=== PATIENT | female | born 1950 | race Caucasian/White ===

== ENCOUNTER 2017-06-13 15:06 | Inpatient (IN) | payer MEDICARE ==
[2017-06-13] VITALS (8 sets, daily range): BP systolic 125–173; BP diastolic 67–99; PULSE 74–99; RESP 16–20; TEMP 97.8–98.4; O2SAT 97–99
[~2017-06-13] VITALS: Ht 162.6 cm; Wt 58.5 kg
[2017-06-13] MEDS ORDERED: PRAV20TA2 PO (15:23)
[2017-06-13] MEDS ORDERED: LISI10TA PO (15:23)
[2017-06-13] MEDS ORDERED: METF750T PO (15:23)
[2017-06-13] MEDS ORDERED: AMBI10TA PO (15:23)
[2017-06-13] MEDS ORDERED: GLIP5TAB8 PO (15:23)
[2017-06-13] MEDS ORDERED: MORPHINE SULFATE 4 MG/ML INJ IV PUSH ONE (15:30)
[2017-06-13] MEDS ORDERED: SODIUM CHLORIDE 0.9% FLUSH 10 ML FLUSH IVF PRN (15:30)
[2017-06-13] MEDS ORDERED: NITROGLYCERIN 2% OINT 1 GM PACKET TOP ONE (15:30)
[2017-06-13 15:38] LABS: AUTOMATED NEUTROPHIL # 7.9 TH/MM3 (1.8-7.7); BASOPHIL # 0.1 TH/MM3 (0-0.2); BASOPHIL % 0.7 % (0.0-2.0); EOSINOPHIL # 0.4 TH/MM3 (0-0.4); HEMATOCRIT 40.9 % (35.0-46.0); HEMOGLOBIN 13.2 GM/DL (11.6-15.3); LYMPH % 18.9 % (9.0-44.0); LYMPHOCYTE # 2.1 TH/MM3 (1.0-4.8); MEAN CELL VOLUME 84.2 FL (80.0-100.0); MEAN CORPUSCULAR HEMOGLOBIN 27.2 PG (27.0-34.0); MEAN CORPUSCULAR HGB CONC 32.3 % (32.0-36.0); MEAN PLATELET VOLUME 7.8 FL (7.0-11.0); MONO % 6.7 % (0.0-8.0); MONOCYTE # 0.7 TH/MM3 (0-0.9); NEUT % 69.7 % (16.0-70.0); PLATELET COUNT 389 TH/MM3 (150-450); RED BLOOD COUNT 4.85 MIL/MM3 (4.00-5.30); WHITE BLOOD COUNT 11.2 TH/MM3 (4.0-11.0)
--- NOTE | 2017-06-13 15:47 | PD ---
HPI . Chest pain Chief Complaint: Chest pain Time Seen by Provider: 15:17 Travel History International Travel<30 days: No Contact w/Intl Traveler<30days: No Traveled to known affect area: No History of Present Illness HPI This patient presents with chief complaint of chest pain. She states she has been having symptoms for the last couple of weeks. The chest pain comes and goes. She has not noted any exacerbating factors. That is, her chest pain does not necessarily occur with activity. She states that it can last for several hours. She reports the onset of an episode of chest pain last night which has been continuous since that time. She states it has waxed and waned rides a pressure-like sensation in the center of her chest. She reports associated left arm and left jaw aching. Has had some nausea and vomiting. Severity is "intense." She took 2 baby aspirin prior to presentation. She reports no previous cardiac history. She does report a history of hypertension and diabetes which have been well controlled with medications. [facility] Past Medical History Diabetes: Yes Patient Takes Glucophage: Yes Hypertension: Yes Tetanus Vaccination: Unknown Influenza Vaccination: Yes ?: Not Menopausal: Yes Past Surgical History Hysterectomy: Yes Social History Alcohol Use: Yes (Occ.) Tobacco Use: No Substance Use: Yes (Marijuana ) Allergies-Medications (Allergen,Severity, Reaction): Coded Allergies: No Known Allergies (Verified Allergy, Unknown, 06/13/17) Reported Meds & Prescriptions Reported Meds & Active Scripts Active Reported Ambien (Zolpidem Tartrate) 10 Mg Tab 10 Mg PO HS Metformin ER (Metformin HCl) 750 Mg Dino 750 Mg PO BID With evening meal Glipizide 5 Mg Tab 5 Mg PO BIDAC Take 30 minutes before a meal Review of Systems Except as stated in HPI: all other systems reviewed are Neg General / Constitutional: Positive: Other (diaphoresis) Cardiovascular: Positive: Chest Pain or Discomfort Gastrointestinal: Positive: Nausea, Vomiting Musculoskeletal: Positive: Myalgias Physical Exam Narrative GENERAL: Awake and alert. Little anxious appearing. SKIN: warm/dry. Good color and turgor. HEAD: Normocephalic. Atraumatic. EYES: Pupils equal and round. No scleral icterus. No injection or drainage. ENT: No nasal bleeding or discharge. Mucous membranes pink and moist. NECK: Trachea midline. Full range of motion without pain.. CARDIOVASCULAR: Regular rate and rhythm. Heart sounds normal. RESPIRATORY: No accessory muscle use. Clear to auscultation. Breath sounds equal bilaterally. GASTROINTESTINAL: Abdomen soft. Nontender. Bowel sounds present. Nondistended. MUSCULOSKELETAL: No obvious deformities. No edema. NEUROLOGICAL: Awake and alert. No obvious cranial nerve deficits. Motor grossly within normal limits. Normal speech. PSYCHIATRIC: Appropriate mood and affect; insight and judgment normal. Data Data Last Documented VS Vital Signs Date Time Temp Pulse Resp B/P (MAP) Pulse Ox O2 Delivery O2 Flow Rate FiO2 06/13/17 15:20 88 06/13/17 15:20 98 Nasal Cannula 2.00 06/13/17 15:15 97.9 20 161/99 (119) Orders Orders Basic Metabolic Panel (Bmp) (06/13/17 15:23) Complete Blood Count With Diff (06/13/17 15:23) Magnesium (Mg) (06/13/17 15:23) Prothrombin Time / Inr (Pt) (06/13/17:23) Act Partial Throm Time (Ptt) (06/13/17 15:23) Troponin I (06/13/17 15:23) Chest, Single Ap (06/13/17 15:23) Ecg Monitoring (06/13/17 15:23) Iv Access Insert/Monitor (06/13/17 15:23) Oximetry (06/13/17 15:23) Oxygen Administration (06/13/17 15:23) Morphine Inj (Morphine Inj) (06/13/17 15:30) Nitroglycerin 2% Oint (Nitroglycerin 2% (06/13/17 15:30) Sodium Chloride 0.9% Flush (Ns Flush) (06/13/17 15:30) Electrocardiogram (06/13/17 ) Heparin Inj (Heparin Inj) (06/13/17 16:15) Heparin Inj (Heparin Inj) (06/13/17 22:15) Heparin Inj (Heparin Inj) (06/13/17 22:15) Heparin-D5w 25,000 U/250 Ml (Heparin-D5w (06/13/17 16:15) Cbc No Diff, Includes Plts (06/16/17 06:00) Act Partial Throm Time (Ptt) (06/13/17 23:07) Occult Blood (Hemoccult) Stool (06/13/17 16:07) Consult Cardiology (06/13/17 ) Admit Order (Ed Use Only) (06/13/17 ) Beef Selector / Telemetry ANUJ.Q8H (06/13/17 16:13) Vital Signs (Adult) Q4H (06/13/17 16:13) Activity Bed Rest (06/13/17 16:13) Notify Dr: Other (06/13/17 16:13) Labs Laboratory Tests Test 06/13/17 15:20 White Blood Count 11.2 TH/MM3 Red Blood Count 4.85 MIL/MM3 Hemoglobin 13.2 GM/DL Hematocrit 40.9 % Mean Corpuscular Volume 84.2 FL Mean Corpuscular Hemoglobin 27.2 PG Mean Corpuscular Hemoglobin Concent 32.3 % Red Cell Distribution Width 13.0 % Platelet Count 389 TH/MM3 Mean Platelet Volume 7.8 FL Neutrophils (%) (Auto) 69.7 % Lymphocytes (%) (Auto) 18.9 % Monocytes (%) (Auto) 6.7 % Eosinophils (%) (Auto) 4.0 % Basophils (%) (Auto) 0.7 % Neutrophils # (Auto) 7.9 TH/MM3 Lymphocytes # (Auto) 2.1 TH/MM3 Monocytes # (Auto) 0.7 TH/MM3 Eosinophils # (Auto) 0.4 TH/MM3 Basophils # (Auto) 0.1 TH/MM3 CBC Comment DIFF FINAL Differential Comment Prothrombin Time 10.1 SEC Prothromb Time International Ratio 1.0 RATIO Activated Partial Thromboplast Time 26.4 SEC Blood Urea Nitrogen 15 MG/DL Creatinine 1.00 MG/DL Random Glucose 224 MG/DL Calcium Level 8.6 MG/DL Magnesium Level 2.1 MG/DL Sodium Level 135 MEQ/L Potassium Level 3.6 MEQ/L Chloride Level 101 MEQ/L Carbon Dioxide Level 26.1 MEQ/L Anion Gap 8 MEQ/L Estimat Glomerular Filtration Rate 55 ML/MIN Troponin I 0.20 NG/ML Exceptions Acute Myocardial Infarction ASA Not Given on Arrival: Already taken by patient MDM Medical Decision Making Medical Screen Exam Complete: Yes Emergency Medical Condition: Yes Medical Record Reviewed: Yes (she has had no previous visits here. Therefore, we do not have any old EKGs for comparison.) Interpretation(s) EKG shows a sinus rhythm with STT wave depression/T-wave inversion in III. ST segment depression in V3 and V4. I do not see any EKG changes in aVR. Repeat EKG 30 minutes later after the patient had been placed on oxygen shows improvement of the ischemic changes. Differential Diagnosis Differential diagnosis of chest pain includes but is not limited to musculoskeletal pain, pulmonary embolism, acute coronary syndrome, pneumonia, pleurisy Narrative Course This patient presents with the chief complaint of chest pain. She has had chest pain that has come and gone for the last several weeks. The pain has been continuous as waxed and waned since last night. Her EKG is concerning for ischemic changes. She has been placed on oxygen. She has R he had aspirin at home. She is being given morphine and Nitropaste. I anticipate eventual transfer to [facility] to be seen by a supervisor cigar making hand. CBC & BMP Diagram 06/13/17 15:20 Calcium Level 8.6, Magnesium Level 2.1 trop 0.20 4 PM The Nitropaste is just now being placed. She reports that her pain is a little bit worse than it was when she first got here. I had presumed that the Nitropaste and oriented and placed and plan to change her from Nitropaste a nitro drip. However, since the patient has not yet been placed, I will give it a few minutes before placing her on a drip. Cardiology has been paged. 4:25 PM Patient reports that her pain is improving. She declined the morphine. 5:15 PM Her pain has continued to steadily improve. She actually looks better. Her color looks better. She doesn't appear is anxious. She is now being transported to [facility] for cardiac catheterization. Critical Care Narrative Aggregate critical care time was 60 minutes. Time to perform other separately billable procedures was not included in the critical care time. My time did not include minutes spent treating any other patients simultaneously or on activities that did not directly contribute to the patient's treatment. The services I provided to this patient were to treat and/or prevent clinically significant deterioration due to ACS I provided critical care services requiring my management, as noted below: Chart data review, documentation time, medication orders and management, vital sign assessments/reviewing monitor data, ordering and reviewing lab tests, ordering and interpreting/reviewing x-rays and diagnostic studies, care of the patient and discussion of the patient with the admitting physicians Diagnosis Primary Impression: Chest pain Qualified Codes: I20.0 - Unstable angina Additional Impression: NSTEMI (non-ST elevated myocardial infarction) Admitting Information Admitting Physician Requests: Admit Condition: Stable Olimpia Yoder MD Jun 13, 2017 15:47
[2017-06-13 15:48] LABS: BICARBONATE 26.1 MEQ/L (21.0-32.0); CALCIUM 8.6 MG/DL (8.5-10.1); MAGNESIUM 2.1 MG/DL (1.5-2.5)
--- NOTE | 2017-06-13 15:48 | RADRPT ---
EXAM DATE/TIME: 06/13/2017 15:29 [facility] COMPARISON: No previous studies available for comparison. INDICATIONS : Chest pain. MEDICAL HISTORY : Hypertension. Diabetes SURGICAL HISTORY : None. ENCOUNTER: Initial ACUITY: 2 weeks PAIN SCORE: 3/10 LOCATION: Bilateral chest FINDINGS: A single view of the chest demonstrates the lungs to be symmetrically aerated without evidence of mas s, infiltrate or effusion. The cardiomediastinal contours are unremarkable. Osseous structures are intact. CONCLUSION: 1. No acute cardiopulmonary findings identified. David Carr MD on June 13, 2017 at 15:46 Board Certified Radiologist. This report was verified electronically.
[2017-06-13 15:49] LABS: PROTHROMBIN TIME - PATIENT 10.1 SEC (9.8-11.6)
[2017-06-13 15:57] LABS: TROPONIN I 0.2 NG/ML (0.02-0.05)
[2017-06-13] MEDS ORDERED: HEPARIN SODIUM - IV 10,000 UNITS/10 ML VIAL IV PUSH ONE (16:15)
[2017-06-13] MEDS ORDERED: HEPARIN-D5W 25,000 U/250 ML 250 ML IV SCH (16:15)
--- NOTE | 2017-06-13 16:40 | HHI.HP ---
[facility] Service [place] [facility] Primary Care Physician Chandana Field MD Admission Diagnosis NSTEMI Diagnoses: Chief Complaint: Chest discomfort Travel History International Travel<30 Days: No Contact w/Intl Traveler <30 Da: No Traveled to Known Affected Are: No History of Present Illness This patient is a 67-year-old postmenopausal female with a history of diabetes and hypertension who comes in with at least a week of intermittent substernal chest pressure/tightness associated with diaphoresis and vomiting today. The patient did come to emergency for further evaluation as found have elevated troponin with abnormal EKG worrisome for ischemic injury. Patient has received nitroglycerin with improvement. For these reasons patient admitted to the hospital for evaluation Review of Systems Constitutional: DENIES: Diaphoretic episodes, Fatigue, Fever, Weight gain, Weight loss, Chills, Dizziness, Change in appetite, Night Sweats Endocrine: DENIES: Abnorml menstrual pattern, Heat/cold intolerance, Polydipsia , Polyuria, Polyphagia Eyes: DENIES: Blurred vision, Diplopia, Eye inflammation, Eye pain, Vision loss , Photosensitivity, Double Vision Respiratory: DENIES: Apneas, Cough, Snoring, Wheezing, Hemoptysis, Sputum production, Shortness of breath Cardiovascular: COMPLAINS OF: Chest pain Gastrointestinal: DENIES: Abdominal pain, Black stools, Bloody stools, Constipation, Diarrhea, Nausea, Vomiting, Difficulty Swallowing, Anorexia Genitourinary: DENIES: Abnormal vaginal bleeding, Dysmenorrhea, Dyspareunia, Sexual dysfunction, Urinary frequency, Urinary incontinence, Urgency, Hematuria , Dysuria, Nocturia, Vaginal discharge Musculoskeletal: DENIES: Joint pain, Muscle aches, Stiffness, Joint Swelling, Back pain, Neck pain Integumentary: DENIES: Abnormal pigmentation, Pruritus, Rash, Nail changes, Breast masses, Breast skin changes, Nipple discharge Hematologic/lymphatic: DENIES: Bruising, Lymphadenopathy Immunologic/allergic: DENIES: Eczema, Urticaria Neurologic: DENIES: Abnormal gait, Headache, Localized weakness, Paresthesias, Seizures, Speech Problems, Tremor, Poor Balance Psychiatric: COMPLAINS OF: Anxiety, DENIES: Confusion, Mood changes, Depression , Hallucinations, Agitation, Suicidal Ideation, Homicidal Ideation, Delusions Past Family Social History Past Medical History Hypertension Diabetes with neuropathy Past Surgical History Ovarian cyst removal, tubal surgery from a tubal Reported Medications Reviewed in the EMR Allergies: Coded Allergies: No Known Allergies (Verified Allergy, Unknown, 06/13/17) Active Ordered Medications Reviewed in the EMR Family History Mother at 77 from complications of diabetes and hypertension, father is alive and well at 93 Social History Retired clerical worker in the medical field, no tobacco, occasional alcohol, marijuana daily Physical Exam Vital Signs Vital Signs Date Time Temp Pulse Resp B/P (MAP) Pulse Ox O2 Delivery O2 Flow Rate FiO2 06/13/17 16:25 99 18 157/84 (108) 99 Nasal Cannula 2.00 06/13/17 15:20 88 06/13/17 15:20 98 Nasal Cannula 2.00 06/13/17 15:20 98 Nasal Cannula 2.00 06/13/17 15:15 97.9 88 20 161/99 (119) 99 Physical Exam GENERAL: This is a well-nourished, well-developed patient, in no apparent distress. SKIN: No rashes, ecchymoses or lesions. Cool and dry. HEAD: Atraumatic. Normocephalic. No temporal or scalp tenderness. EYES: Pupils equal round and reactive. Extraocular motions intact. No scleral icterus. No injection or drainage. ENT: Nose without bleeding, purulent drainage or septal hematoma. Throat without erythema, tonsillar hypertrophy or exudate. Uvula midline. Airway patent. NECK: Trachea midline. No JVD or lymphadenopathy. Supple, nontender, no meningeal signs. CARDIOVASCULAR: Regular rate and rhythm without murmurs, gallops, or rubs. RESPIRATORY: Clear to auscultation. Breath sounds equal bilaterally. No wheezes , rales, or rhonchi. GASTROINTESTINAL: Abdomen soft, non-tender, nondistended. No hepato-splenomegaly , or palpable masses. No guarding. MUSCULOSKELETAL: Extremities without clubbing, cyanosis, or edema. No joint tenderness, effusion, or edema noted. No calf tenderness. Negative Homans sign bilaterally. NEUROLOGICAL: Awake and alert. Cranial nerves II through XII intact. Motor and sensory grossly within normal limits. Five out of 5 muscle strength in all muscle groups. Normal speech. Laboratory Laboratory Tests Test 06/13/17 15:20 White Blood Count 11.2 Red Blood Count 4.85 Hemoglobin 13.2 Hematocrit 40.9 Mean Corpuscular Volume 84.2 Mean Corpuscular Hemoglobin 27.2 Mean Corpuscular Hemoglobin Concent 32.3 Red Cell Distribution Width 13.0 Platelet Count 389 Mean Platelet Volume 7.8 Neutrophils (%) (Auto) 69.7 Lymphocytes (%) (Auto) 18.9 Monocytes (%) (Auto) 6.7 Eosinophils (%) (Auto) 4.0 Basophils (%) (Auto) 0.7 Neutrophils # (Auto) 7.9 Lymphocytes # (Auto) 2.1 Monocytes # (Auto) 0.7 Eosinophils # (Auto) 0.4 Basophils # (Auto) 0.1 CBC Comment DIFF FINAL Differential Comment Prothrombin Time 10.1 Prothromb Time International Ratio 1.0 Activated Partial Thromboplast Time 26.4 Blood Urea Nitrogen 15 Creatinine 1.00 Random Glucose 224 Calcium Level 8.6 Magnesium Level 2.1 Sodium Level 135 Potassium Level 3.6 Chloride Level 101 Carbon Dioxide Level 26.1 Anion Gap 8 Estimat Glomerular Filtration Rate 55 Troponin I 0.20 Result Diagram: 06/13/17 1520 06/13/17 1520 Imaging Last Impressions Chest X-Ray 06/13/17 1523 Signed Impressions: Service Date/Time: Tuesday, June 13, 2017 15:29 - CONCLUSION: 1. No acute cardiopulmonary findings identified. MD Elijah Haynes VTE Risk Assessment Elijah VTE Risk Assessment: Mod/High Risk (score >= 2) Caprini Risk Assessment Model Point Value = 1 Point Value = 2 Point Value = 3 Point Value = 5 Age 41-60 Minor surgery BMI > 25 kg/m2 Swollen legs Varicose veins or History of unexplained or recurrent spontaneous Oral contraceptives or hormone replacement Sepsis (< 1 month) Serious lung disease, including pneumonia (< 1 month) Abnormal pulmonary function Acute myocardial infarction Congestive heart failure (< 1 month) History of inflammatory bowel disease Medical patient at bed rest Age 61-74 Arthroscopic surgery Major open surgery (> 45 min) Laparoscopic surgery (> 45 min) Malignancy Confined to bed (> 72 hours) Immobilizing plaster cast Central venous access Age >= 75 History of VTE Family history of VTE Factor V Leiden Prothrombin [id number] Lupus anticoagulant Anticardiolipin antibodies Elevated serum homocysteine Heparin-induced thrombocytopenia Other congenital or acquired thrombophilia Stroke (< 1 month) Elective arthroplasty Hip, pelvis, or leg fracture Acute spinal cord injury (< 1 month) Prophylaxis Regimen Total Risk Factor Score Risk Level Prophylaxis Regimen 0-1 Low Early ambulation 2 Moderate Order ONE of the following: *Sequential Compression Device (SCD) *Heparin 5000 units SQ BID 3-4 Higher Order ONE of the following medications: *Heparin 5000 units SQ TID *Enoxaparin/Lovenox 40 mg SQ daily (WT < 150 kg, CrCl > 30 mL/min) *Enoxaparin/Lovenox 30 mg SQ daily (WT < 150 kg, CrCl > 10-29 mL/min) *Enoxaparin/Lovenox 30 mg SQ BID (WT < 150 kg, CrCl > 30 mL/min) AND/OR *Sequential Compression Device (SCD) 5 or more Highest Order ONE of the following medications: *Heparin 5000 units SQ TID (Preferred with Epidurals) *Enoxaparin/Lovenox 40 mg SQ daily (WT < 150 kg, CrCl > 30 mL/min) *Enoxaparin/Lovenox 30 mg SQ daily (WT < 150 kg, CrCl > 10-29 mL/min) *Enoxaparin/Lovenox 30 mg SQ BID (WT < 150 kg, CrCl > 30 mL/min) AND *Sequential Compression Device (SCD) Assessment and Plan Problem List: (1) NSTEMI (non-ST elevated myocardial infarction) ICD Code: I21.4 - Non-ST elevation (NSTEMI) myocardial infarction Status: Acute Plan: Morphine, oxygen, nitroglycerin, aspirin, telemetry, cardiac evaluation pending Will transfer patient to al and also for possible cardiac catheterization Follow serial troponin (2) DM2 (diabetes mellitus, type 2) ICD Code: E11.9 - Type 2 diabetes mellitus without complications Plan: patient also with neuropathy We'll continue with Accu-Cheks, sliding scale and diabetes management (3) HTN (hypertension) ICD Code: I10 - Essential (primary) hypertension Carmelita Littlejohn MD Jun 13, 2017 16:40
[2017-06-13] MEDS ORDERED: SODIUM CHLORIDE 0.9% FLUSH 10 ML FLUSH IV FLUSH PRN (16:45)
[2017-06-13] MEDS ORDERED: MORPHINE SULFATE 4 MG/ML INJ IV PUSH PRN (16:45)
[2017-06-13] MEDS ORDERED: DEXTROSE 50% IN WATER 50 ML VIAL(D50) IV PUSH PRN (16:45)
[2017-06-13] MEDS ORDERED: GLUCAGON 1 MG/ML VIAL OTHER PRN (16:45)
[2017-06-13] MEDS ORDERED: CLOPIDOGREL 75 MG TAB PO SCH (17:00)
[2017-06-13] MEDS ORDERED: NITROGLYCERIN 2% OINT 1 GM PACKET TOP SCH (17:00)
[2017-06-13] MEDS ORDERED: HEPARIN SODIUM - IV 10,000 UNITS/10 ML VIAL ONE (18:33)
[2017-06-13] MEDS ORDERED: NITROGLYCERIN INJ 5 ML ONE (18:33)
[2017-06-13] MEDS ORDERED: HEPARIN-NS/PF FLUSH BAG 2,000 ML IV FLUSH ONE (18:33)
[2017-06-13] MEDS ORDERED: MIDAZOLAM HCL 2 MG/2 ML VIAL ONE ×2 (18:33→18:42)
[2017-06-13] MEDS ORDERED: TICAGRELOR 90 MG TAB PO ONE (20:00)
[2017-06-13] MEDS ORDERED: SODIUM CHLOR 0.9% 1000 ML INJ 1,000 ML IV SCH (20:02)
--- NOTE | 2017-06-13 20:10 | CATHPROC ---
[employer] HIS Report Study Information Study Number Admission Scheduled Start Study Start [id number] Jun 13 2017 4:15PM 06/13/2017 Jun 13 2017 6:20PM [place] Cardiac Catheterization Admit Source Facility Department Transfer in from another acute care facility [facility] - Retread Supervisor Physician and Clinical Staff Initial Andreas Almeida Material Man Seda Montoya,PAULA Recorder Odette Herzog RN Scrub Jennifer Conklin,RT(R) TECH2 Procedures Performed Procedure Location (Site) Vessel Name Angiogram LV LV Ventricle Coronary Angiograms LCA Left Coronary Coronary Angiograms RCA Right Coronary Drug Eluting Inflatio DIAG1 Prox Left Coronary L Heart Cath PTCA DIAG1 Prox Left Coronary PTCA ADD ON'S Wire insertion Fem Art (right) Femoral Art Equipment Time [place] City Auditor Description Size Mfg Part Number Used/Scraped WIRE, BALANCE MIDDLEWEIGHT [id number] 19:09 [employer] 190CM Used 190CM ([facility]) *[id number] TRANSDUCER, TRUWAVE [id number] 18:31 LAWRENCE VERDUGO * Used W/STOCKCOCK *[id number] [id number] *[id number] 534-520T *[id number] 534-620T *[id number] 534-552S *[id number] *[id number] 19:40 DAIG/[employer]. [employer] MED[employer] ANGIOSEAL, FR6 VIP FR 6 Used *[id number] 18:31 MEDLINE INDUSTRIES PACK, CCL CUSTOM * Used *[id number] 18:31 gDecide PACER PEN, SKIN DUAL W/ RULER * Used *[id number] 18:59 MEDTRONIC AR MOD DXTERITY CATHETER FR 5 [id number] Used [id number] 19:13 MEDTRONIC BALLOON, 2.0 X 10MM EUPHORA 10MM Used *[id number] 19:27 MEDTRONIC STENT, 2.25 12MM ELBERT 2.25 12MM Used *[id number] 19:06 OwnEnergy MEDICAL 30 CHRISTOFER INDEFLATOR Used *[id number] 19:08 FLX Micro SHEATH, FR6.5 PRELUDE 11CM FR 6.5 038ACT Used *[id number] 18:31 FLX Micro WIRE, 3MMJ .035 180CM 180CM Used *[id number] PROBE COVER, STERILE [id number] 18:31 Corrupt L[employer] MEDICAL * Used ULTRASOUND W/ GEL *[id number] 18:31 NAMIC MANIFOLD, 4 PORT * Used *[id number] 18:31 NAMIC TUBING, HIGH PRESSURE 48" 48" Used *[id number] 18:31 NYCOMED OMNIPAQUE, 350 MG, 150ML 150ML [id number] Used [id number] 18:31 [facility] BLANKET,WARM AIR CCL * Used *[id number] 18:31 TERUMO MEDICAL SHEATH, FR5 TERUMO (10CM) FR 5 Used *[id number] WIRE, RUNTHROUGH NS FLOPPY [id number] 19:09 TERUMO MEDICAL 180CM Used .014 180CM *[id number] Equipment Model, Serial, Lot Number and Expiration Data Description Model Number Serial Number Lot Number Expiration Date ANGIOSEAL, FR6 [facility] [id number] 02-25-2018 AR MOD DXTERITY CATHETER [id number] 08-24-2019 STENT, 2.25 12MM ELBERT [id number] 02-18-2019 History: Allergies Allergy Reaction No Known Allergies History: Risk Factors Family History of Hypertension Dyslipidemia Previous OH Previous Heart Failure Premature CAD Yes Yes Yes No No Prior Valve Prior PCI Prior CABG Surgery No No No Cerebrovascular Peripheral Artery Chronic Lung On Dialysis Diabetes Diabetes Therapy Disease Disease Disease No No No No Yes Oral History: Symptoms/Diagnosis Selection Items Chest pain SOB History: Stress Tests Stress or Imaging Studies Performed No History: Other Disease Selection Items HTN Labs Hgb (g/dl) Hct (%) WBC (l/cumm) Platelets (thousands) 11.60-17.00 35.00-51.00 4.00-11.00 150.00-450.00 13.2 40.9 11.2 359 Glucose (mg/dl) BUN (mg/dl) Creatinine (mg/dl) BUN:Creatinine (1:x) 74.00-106.00 7.00-18.00 0.50-1.30 10.00-20.00 224 15 1.0 15 Na (meq/l) K (meq/l) 136.00-145.00 3.50-5.10 135 3.6 INR (PTT:PT) 0.90-1.10 1 Troponin I (ng/ml) CPK-MB (ng/ML) 0.02-0.05 0.50-3.60 0.2 Not Drawn Medication Medication Total Dose (Bolus/Oral) Medication Total Dosage/Unit 1% XYLOCAINE 20 mL BRILINTA 180 mg FENTANYL 50 mcg HEPARIN 5000 units NTG (IC) 100 mcg VERSED 4 mg Medications (Bolus/Oral) Medication Time Given Dosage/Unit Administered By Reason VERSED 06/13/2017 6:42:37 PM 1 mg Jan, Seda 1 mg VERSED given in lab by Seda Montoya RN in Left Antecubital via Peripheral IV. Ordered by Andreas Jackson. VERSED 06/13/2017 6:43:23 PM 1 mg Kari Montoyaara 1 mg VERSED given in lab by Seda Montoya RN in Left Antecubital via Peripheral IV. Ordered by Andreas Jackson. FENTANYL 06/13/2017 6:44:23 PM 25 mcg Jan Seda 25 mcg FENTANYL given in lab by Seda Montoya RN in Left Antecubital via Peripheral IV. Ordered by Andreas Huerta. VERSED 06/13/2017 6:48:24 PM 1 mg Kari Montoyaara 1 mg VERSED given in lab by Seda Montoya RN via Peripheral IV. Ordered by Andreas Huerta. FENTANYL 06/13/2017 6:49:29 PM 25 mcg Kari Montoyaara 25 mcg FENTANYL given in lab by Seda Montoya RN via Peripheral IV. Ordered by Andreas Huerta. 1% XYLOCAINE 06/13/2017 6:51:33 PM 20 mL Andreas Huerta 20 mL 1% XYLOCAINE given in lab by Andreas Huerta in Right Groin via Subcutaneous. Ordered by Andreas Hill. HEPARIN 06/13/2017 7:10:13 PM 5000 units Seda Montoya 5000 units HEPARIN given in lab by Seda Montoya RN in Left Antecubital via Peripheral IV. Ordered by Andreas Huerta. VERSED 06/13/2017 7:17:59 PM 1 mg Jan Seda 1 mg VERSED given in lab by Seda Montoya RN in Left Antecubital via Peripheral IV. Ordered by Andreas Jackson. NTG (IC) 06/13/2017 7:33:42 PM 100 mcg Andreas Huerta 100 mcg NTG (IC) given in lab by Andreas Huerta via Intra-coronary. Ordered by Andreas Huerta. BRILINTA 06/13/2017 8:02:30 PM 180 mg Seda Montoya As per physicians ve rbal order 180 mg BRILINTA given in lab by Seda Montoya, RN via Oral. Ordered by Andreas Huerta. Reason: As per physicians verbal order. Initial Case Assessment Cardiovascular HR Rhythm NIBP Chest Pain 91 NSR 154/85 1 Edema Present Skin color Skin None Normal Warm Dry Circulatory - Right Pulses Dorsalis Pedis Posterior Tibial Femoral 3 3 3 Scale (0,1,2,3,4,d) Circulatory - Left Pulses Dorsalis Pedis Posterior Tibial Femoral 3 3 3 Scale (0,1,2,3,4,d) Circulatory - Lower Extremities Color Lower Right Color Lower Left Normal Normal Neurological State Oriented to time-place- Alert Moves all extremities person Respiration - General Respiration Rate SpO2 (%) (B/min) 18 98 Final Case Assessment Cardiovascular HR Rhythm NIBP Chest Pain 88 NSR 117/71 0 Edema Present Skin color Skin None Normal Warm Dry Circulatory - Right Pulses Dorsalis Pedis Posterior Tibial Femoral 3 3 3 Scale (0,1,2,3,4,d) Circulatory - Left Pulses Dorsalis Pedis Posterior Tibial Femoral 3 3 3 Scale (0,1,2,3,4,d) Circulatory - Lower Extremities Color Lower Right Color Lower Left Normal Normal Neurological State Oriented to time-place- Alert Moves all extremities person Respiration - General Respiration Rate SpO2 (%) O2 (lpm) (B/min) 18 98 2 Chronological Log Time Study Chronological Log 18:15:00 Patient arrived via Bed. 18:15:01 Patient Name, D.O.B, / Armband Verified By R.N. 18:15:02 Consent signed by the physician and the patient and verified by the Retread Supervisor staff. 18:15:03 Pre-op and post- op instructions given; patient acknowledges understanding of instructions. 18:15:05 Verbal Stimulation=2 Physical Stimulation=2 Airway=2 Respiration=2 TOTAL=8. (0=absent, 1=li mited, 2=present) 18:15:50 Presedation assessment performed by Retread Supervisor RN. 18:16:00 Patient has been NPO for More than 6Hrs. 18:17:00 Skin Breakdown-none per pt 18:18:00 Patient Warmer Placed on the Table. 18:18:30 Disposable Defibrillator Pads Placed On Patient. 18:19:00 Dixon Prominences Protected 18:20:00 History and physical on the chart or being dictated. 18:23:00 Pt arrived with heparin gtt running at 7ml/hr. gtt discontinued at 1823 by Kari RN per MD verbal orders 18:23:29 A # 20 IV was noted in the Antecubital (left). Grade = 0 0.9NS infusing at KVO in lab by Ryan weber, chemical research engineer: Initial Case, HR=91 BPM, Rhythm=NSR, DZND=477/85 mmhg, Chest Pain=1, Edema=None, Color=Normal, Skin = Warm, Dry Right Pulses: Sree Ped=3, Post Tib=3, Femoral=3 Left Pulses: Sree Ped=3, Post Tib=3, Femoral=3 18:24:23 Lower Right Extremities: Color=Normal Lower Left Extremities: Color=Normal Neurological: State=Alert, Ox3, TERAN Respiration: Resp=18 B/min, SpO2=98 % Vitals capture started with the following parameters, Patient=Adult, Interval=5 min, Initial Pr pcsmqe=752 mmHg, 18:24:26 Deflation Rate=5 mmHg, Cuff placed on Right Arm 18:25:36 HR=91 bpm, IBII=077/85 mmhg, SpO2=98.0 %, Resp=16 B/min, Pain=1, Leo=10, Ng=2 18:30:04 HR=89 bpm, ZDOE=362/91 mmhg, SpO2=98.0 %, Resp=15 B/min, Pain=1, Leo=10, Ng=2 18:34:54 Reference ECG taken 18:35:03 HR=93 bpm, SSCH=153/89 mmhg, SpO2=99.0 %, Resp=16 B/min, Pain=1, Leo=10, Ng=2 18:37:17 Bilateral groins prepped with 2% chlorhexidine, and draped after a 3 minute waiting time. 18:40:04 HR=89 bpm, CXOB=919/94 mmhg, SpO2=98.0 %, Resp=17 B/min, Pain=1, Leo=10, Ng=2 18:41:00 paged 18:42:37 1 mg VERSED given in lab by Seda Montoya RN in Left Antecubital via Peripheral IV. Orde red by Andreas Huerta. 18:42:59 MD responded 18:43:23 1 mg VERSED given in lab by Seda Montoya RN in Left Antecubital via Peripheral IV. Orde red by Andreas Huerta. 25 mcg FENTANYL given in lab by Seda Montoya RN in Left Antecubital via Peripheral IV. Orde red by Deanna, 18:44:23 Andreas. 18:45:03 HR=94 bpm, JUWV=604/86 mmhg, WjE3=314.0 %, Resp=18 B/min, Pain=1, Leo=10, Ng=2 18:45:06 MD arrived. 18:47:17 Pressure channel 2 zeroed. 18:48:24 1 mg VERSED given in lab by Seda Montoya, PAULA via Peripheral IV. Ordered by Jami Huerta. 18:49:29 25 mcg FENTANYL given in lab by Seda Montoya, PAULA via Peripheral IV. Ordered by Andreas Huerta. 18:50:05 HR=85 bpm, ERRU=134/76 mmhg, PtW7=880.0 %, Resp=10 B/min, Pain=1, Leo=10, Ng=2 Time Out. Correct patient, correct procedure, correct physician, power injector loaded, with co ntrast with surgical team 18:50:57 present. Time Out Concurred by MD and individual staff in procedure. 18:51:32 Case Start 18:51:33 20 mL 1% XYLOCAINE given in lab by Andreas Huerta in Right Groin via Subcutaneous. Ordered by Andreas Huerta. 18:53:13 Access site was Right Femoral Artery. 18:53:37 A SHEATH, FR5 TERUMO (10CM) FR 5 was advanced into the Fem Art (right) using the Modified S eldinger technique. A PIGTAIL ANG. INFINITI CATHETER FR 5 was advanced over a wire. OMNIPAQUE, 350 MG, 150ML 150ML was used 18:54:00 for injections. Recorded Pressure: LV, HR=90, Condition=Condition 1 18:54:54 (Left Ventricle) LV 122/4/11 18:55:02 HR=88 bpm, QBXH=730/75 mmhg, SpO2=99.0 %, Resp=12 B/min, Pain=1, Leo=10, Ng=2 18:55:34 The LV was injected at 10 cc/sec for a total of 30. OMNIPAQUE, 350 MG, 150ML 150ML used. Recorded Pressure: LV, Ao, HR=88, Condition=Condition 1 18:56:28 (Left Ventricle) LV 115/5/8, (Aorta) Ao 110/42/76 18:56:50 Catheter was removed A JL 4.0 INFINITI CATHETER FR 5 was advanced over a wire. OMNIPAQUE, 350 MG, 150ML 150ML was us ed for 18:56:53 injections. 18:59:59 HR=90 bpm, JGOC=595/75 mmhg, SpO2=98.0 %, Resp=19 B/min, Pain=1, Leo=10, Ng=2 Recorded Pressure: Ao, HR=90, Condition=Condition 1 19:00:12 (Aorta) Ao 121/67/92 19:00:28 The LCA was injected and visualized at various angles. OMNIPAQUE, 350 MG, 150ML 150ML used . 19:02:07 Catheter was removed A AR MOD DXTERITY CATHETER FR 5 was advanced over a wire. OMNIPAQUE, 350 MG, 150ML 150ML was us ed for 19:03:09 injections. 19:03:50 The RCA was injected and visualized at various angles. OMNIPAQUE, 350 MG, 150ML 150ML used . 19:05:02 HR=90 bpm, STLD=512/75 mmhg, SpO2=98.0 %, Resp=17 B/min, Pain=1, Leo=10, Ng=2 19:06:23 OMNIPAQUE, 350 MG, 150ML 150ML and 30 CHRISTOFER INDEFLATOR added. 19:07:42 Activated Clotting Time Drawn A SHEATH, FR6.5 PRELUDE 11CM FR 6.5 was exchanged in the Fem Art (right). This was necessary in order to 19:08:05 accomodate a larger catheter. A XB 3.5 GUIDE CATHETER FR 6 was advanced over a wire. OMNIPAQUE, 350 MG, 150ML 150ML was used for 19:09:47 injections. 19:10:03 HR=88 bpm, EWJU=195/70 mmhg, SpO2=98.0 %, Resp=19 B/min, Pain=1, Leo=10, Ng=2 19:10:08 ACT (Normal Range 90-180) = 79 5000 units HEPARIN given in lab by Seda Montoya, RN in Left Antecubital via Peripheral IV. O rdered by Deanna :: Andreas. 19:12:09 A WIRE, RUNTHROUGH NS FLOPPY .014 180CM 180CM was inserted via Fem Art (right). Diagional 19:13:20 Interventional wire has crossed the lesion 19:14:18 A WIRE, BALANCE MIDDLEWEIGHT 190CM (DARNELL) 190CM was inserted via Fem Art (right). LAD 19:15:02 HR=87 bpm, WBKL=972/73 mmhg, SpO2=99.0 %, Resp=16 B/min, Pain=1, Leo=10, Ng=2 A BALLOON, 2.0 X 10MM EUPHORA 10MM was inserted over WIRE, RUNTHROUGH NS FLOPPY .014 180CM 180C M via 19:15:51 the DIAG1 Prox. 19:17:59 1 mg VERSED given in lab by Seda Montoya, PAULA in Left Antecubital via Peripheral IV. Orde red by Andreas Huerta. 19:20:01 HR=84 bpm, GCYW=798/73 mmhg, SpO2=98.0 %, Resp=17 B/min, Pain=1, Leo=10, Ng=2 A BALLOON, 2.0 X 10MM EUPHORA 10MM over a WIRE, RUNTHROUGH NS FLOPPY .014 180CM 180CM in the DI AG1 19:21:13 Prox was inflated using a 30 CHRISTOFER INDEFLATOR at 6 christofer for 12 sec. A BALLOON, 2.0 X 10MM EUPHORA 10MM over a WIRE, RUNTHROUGH NS FLOPPY .014 180CM 180CM in the DI 1 19:21:30 Prox was inflated using a 30 CHRISTOFER INDEFLATOR at 6 christofer for 8 sec. A BALLOON, 2.0 X 10MM EUPHORA 10MM over a WIRE, RUNTHROUGH NS FLOPPY .014 180CM 180CM in the DI AG1 19:21:45 Prox was inflated using a 30 CHRISTOFER INDEFLATOR at 6 christofer for 13 sec. A BALLOON, 2.0 X 10MM EUPHORA 10MM over a WIRE, RUNTHROUGH NS FLOPPY .014 180CM 180CM in the DI AG1 19:22:30 Prox was inflated using a 30 CHRISTOFER INDEFLATOR at 10 christofer for 14 sec. 19:22:49 Balloon Removed. 19:25:02 HR=87 bpm, KKWM=794/69 mmhg, SpO2=98.0 %, Resp=19 B/min, Pain=1, Leo=10, Ng=2 A STENT, 2.25 12MM EBLERT 2.25 12MM was advanced through a XB 3.5 GUIDE CATHETER FR 6 over a WIRE , 19:28:11 RUNTHROUGH NS FLOPPY .014 180CM 180CM. 19:30:05 HR=86 bpm, OOTA=537/67 mmhg, SpO2=98.0 %, Resp=18 B/min, Pain=1, Leo=10, Ng=2 A STENT, 2.25 12MM ELBERT 2.25 12MM was deployed using a 30 CHRISTOFER INDEFLATOR at 7 atmospheres for 4 0 seconds in 19:31:04 the DIAG1 Prox. 19:32:57 Re-inflated the stent balloon in the DIAG1 Prox to 9 CHRISTOFER for 20 seconds. 19:33:30 Delivery device removed 19:33:42 100 mcg NTG (IC) given in lab by Andreas Huerta via Intra-coronary. Ordered by Mariano Huerta. 19:34:48 BMW and Runthrough Wires removed 19:35:04 HR=87 bpm, VVNF=983/67 mmhg, SpO2=98.0 %, Resp=18 B/min, Pain=1, Leo=10, Ng=2 19:35:09 The LCA was injected and visualized at various angles. OMNIPAQUE, 350 MG, 150ML 150ML used . 19:39:59 HR=90 bpm, AARC=618/71 mmhg, SpO2=97.0 %, Resp=18 B/min, Pain=0, Leo=10, Ng=2 19:40:04 Catheter was removed 19:40:47 An injection in the Fem Art (right) was made through the SHEATH, FR6.5 PRELUDE 11CM FR 6.5 . 19:41:48 ANGIOSEAL, FR6 VIP FR 6 placement in the Fem Art (right) 19:42:40 Case End Assessment: Final Case, HR=88 BPM, Rhythm=NSR, ROMW=569/71 mmhg, Chest Pain=0, Edema=None, Col or=Normal, Skin = Warm, Dry Right Pulses: Sree Ped=3, Post Tib=3, Femoral=3 Left Pulses: Sree Ped=3, Post Tib=3, Femoral=3 19:43:03 Lower Right Extremities: Color=Normal Lower Left Extremities: Color=Normal Neurological: State=Alert, Ox3, TERAN Respiration: Resp=18 B/min, SpO2=98 %, O2=2 lpm 19:43:51 No case complications noted. 19:43:52 Cine recording checked. 19:43:54 CPCU called. Spoke to Technical Support Analyst 19:44:14 Bedside Report will be given. 19:44:41 Verbal Stimulation=2 Physical Stimulation=2 Airway=2 Respiration=2 TOTAL=8. (0=absent, 1=l imited, 2=present) 19:44:54 A Left Heart Cath was performed. 19:45:02 HR=74 bpm, KZQE=030/70 mmhg, SpO2=98.0 %, Resp=16 B/min, Pain=0, Leo=10, Ng=2 19:45:38 Implantable Device card placed in patient's chart. 19:50:05 HR=76 bpm, RLHO=264/74 mmhg, SpO2=98.0 %, Resp=16 B/min, Pain=0, Leo=10, Ng=2 180 mg BRILINTA given in lab by Seda Montoya, PAULA via Oral. Ordered by Andreas Huerta. Reas on: As per physicians 20:02:30 verbal order. End Study - Contrast Media Used In Study Contrast Total Opened (mL) Total Used (mL) Total Wasted (mL) Omnipaque 200 180 20 End Study - Maximum Contrast Load Max Contrast Load (mL) 300.5 End Study - Radiation Exposure Fluoro Time (minutes) 10.8 End Study - Patient Disposition Complications Transferred To Interventional Outcome No Telemetry Bed successful
[2017-06-13] MEDS ORDERED: MISC INFORMATION XX ONE (20:15)
[2017-06-13] MEDS ORDERED: SODIUM CHLOR 0.9% 250 ML INJ 250 ML IV PRN (20:15)
[2017-06-13] MEDS ORDERED: ACETAMINOPHEN 325 MG TAB PO PRN (20:15)
[2017-06-13] MEDS ORDERED: ZOLPIDEM TARTRATE 10 MG TAB PO SCH (21:00)
[2017-06-13] MEDS: INSULIN ASPART SUPPLEMENTAL SCALE SQ SCH (21:00)
[2017-06-13] MEDS ORDERED: ATORVASTATIN 80 MG TAB PO SCH (21:00)
[2017-06-13] MEDS ORDERED: CARVEDILOL 3.125 MG TAB PO SCH (21:00)
[2017-06-13] MEDS: SODIUM CHLORIDE 0.9% FLUSH 10 ML FLUSH IV FLUSH SCH (21:00)
[2017-06-13] MEDS ORDERED: ATORVASTATIN 10 MG TAB PO SCH (21:00)
--- NOTE | 2017-06-13 22:11 | MB ---
cc: ANDREAS HUERTA MD DATE OF CONSULTATION 06/13/17 HISTORY OF PRESENT ILLNESS Ms. Cruz is a 67 year old white female with history of diabetes mellitus, hypertension. She has had several week history of some intermittent substernal chest pressure associated with diaphoresis. She had increased intensity of her pain with nausea and vomiting. She came to the emergency room and was found to have elevated troponin, abnormal EKG and continuing chest discomfort. She was transferred to the [facility] for cardiac catheterization. PAST MEDICAL HISTORY 1. Hypertension, 2. Diabetes mellitus, 3. Diabetic neuropathy 4. Ovary and cyst removal surgery 5. Tubal . MEDICATIONS 1. Glipizide. 2. Metformin 3. Zolpidem ALLERGIES None. SOCIAL HISTORY The patient does not smoke. She drinks alcohol occasionally. She is a retired clerical worker. FAMILY HISTORY Negative for heart disease. REVIEW OF SYSTEMS Otherwise negative. PHYSICAL EXAMINATION VITAL SIGNS: Blood pressure 157/84, pulse 88 and regular. HEENT: Negative. 2+ carotid upstrokes. No bruits. LUNGS: Clear. HEART: Regular with no murmur, gallop or rub. ABDOMEN: Soft. No bruits. EXTREMITIES: Without edema. 2+ distal pulses NEUROLOGIC: Grossly nonfocal. CARDIOLOGY STUDIES EKG was reviewed and showed normal sinus rhythm and diffuse ST depressions consistent with non-ST elevation myocardial function. LABORATORY DATA Hemoglobin 13.2, potassium 3.6, creatinine 1.0, troponin 0.20. DIAGNOSES 1. Min-KB-pxqbozddn myocardial function. 2. Hypertension 3. Diabetes mellitus. DISPOSITION Ms. Cruz will undergo emergent cardiac catheterization and coronary intervention. She understands the risks and benefits and wishes to proceed. Andreas Huerta MD OLaura/ /8:01 PM /10:02 PM
[2017-06-13] MEDS ORDERED: HEPARIN SODIUM - IV 10,000 UNITS/10 ML VIAL IV PUSH PRN ×2 (22:15)
[2017-06-13] MEDS: CARVEDILOL 3.125 MG TAB PO SCH (22:24)
[2017-06-14] VITALS (15 sets, daily range): BP systolic 98–142; BP diastolic 64–83; PULSE 78–111; RESP 16–19; TEMP 98.3–98.4; O2SAT 98
[2017-06-14 00:36] LABS: AUTOMATED NEUTROPHIL # 8.9 TH/MM3 (1.8-7.7); BASOPHIL # 0.1 TH/MM3 (0-0.2); BASOPHIL % 0.7 % (0.0-2.0); EOSINOPHIL # 0.1 TH/MM3 (0-0.4); EOSINOPHIL % 0.7 % (0.0-4.0); HEMATOCRIT 34.2 % (35.0-46.0); HEMOGLOBIN 11.6 GM/DL (11.6-15.3); LYMPH % 14.1 % (9.0-44.0); LYMPHOCYTE # 1.6 TH/MM3 (1.0-4.8); MEAN CELL VOLUME 81.9 FL (80.0-100.0); MEAN CORPUSCULAR HEMOGLOBIN 27.9 PG (27.0-34.0); MEAN PLATELET VOLUME 7.3 FL (7.0-11.0); MONO % 7.6 % (0.0-8.0); MONOCYTE # 0.9 TH/MM3 (0-0.9); NEUT % 76.9 % (16.0-70.0); PLATELET COUNT 356 TH/MM3 (150-450); RED BLOOD COUNT 4.17 MIL/MM3 (4.00-5.30); RED CELL DISTRIBUTION WIDTH 13.6 % (11.6-17.2); WHITE BLOOD COUNT 11.5 TH/MM3 (4.0-11.0)
[2017-06-14 01:16] LABS: TROPONIN I 39.7 NG/ML (0.02-0.05)
[2017-06-14 05:23] LABS: AUTOMATED NEUTROPHIL # 9.2 TH/MM3 (1.8-7.7); BASOPHIL # 0.1 TH/MM3 (0-0.2); BASOPHIL % 0.4 % (0.0-2.0); EOSINOPHIL # 0.2 TH/MM3 (0-0.4); EOSINOPHIL % 1.5 % (0.0-4.0); LYMPH % 14.5 % (9.0-44.0); LYMPHOCYTE # 1.8 TH/MM3 (1.0-4.8); MEAN CELL VOLUME 81.6 FL (80.0-100.0); MEAN CORPUSCULAR HEMOGLOBIN 28.1 PG (27.0-34.0); MEAN CORPUSCULAR HGB CONC 34.4 % (32.0-36.0); MEAN PLATELET VOLUME 7.8 FL (7.0-11.0); MONO % 8.7 % (0.0-8.0); MONOCYTE # 1.1 TH/MM3 (0-0.9); NEUT % 74.9 % (16.0-70.0); PLATELET COUNT 340 TH/MM3 (150-450); RED BLOOD COUNT 4.28 MIL/MM3 (4.00-5.30); RED CELL DISTRIBUTION WIDTH 13.7 % (11.6-17.2); WHITE BLOOD COUNT 12.3 TH/MM3 (4.0-11.0)
[2017-06-14 05:25] LABS: BICARBONATE 22.3 MEQ/L (21.0-32.0); CALCIUM 8.5 MG/DL (8.5-10.1); CREATININE 0.94 MG/DL (0.50-1.00)
[2017-06-14 05:38] LABS: CHOLESTEROL/ HDL RATIO 3.79 RATIO; HDL CHOLESTEROL 42.7 MG/DL (40.0-60.0)
[2017-06-14 05:40] LABS: TROPONIN I 23.8 NG/ML (0.02-0.05)
[2017-06-14] MEDS ORDERED: glipiZIDE 5 MG TAB PO SCH (07:00)
[2017-06-14] MEDS ORDERED: ASPIRIN EC 325 MG TABEC PO SCH (09:00)
[2017-06-14] MEDS ORDERED: TICAGRELOR 90 MG TAB PO SCH (09:00)
[2017-06-14] MEDS ORDERED: LISINOPRIL 5 MG TAB PO SCH ×2 (09:00)
[2017-06-14] MEDS ORDERED: ASPIRIN 81 MG CHEW TAB PO SCH (09:00)
[2017-06-14] MEDS: CARVEDILOL 3.125 MG TAB PO SCH (09:11)
[2017-06-14] MEDS: INSULIN ASPART SUPPLEMENTAL SCALE SQ SCH ×2 (09:13→12:15)
[2017-06-14] MEDS: SODIUM CHLORIDE 0.9% FLUSH 10 ML FLUSH IV FLUSH SCH (09:14)
--- NOTE | 2017-06-14 11:41 | PD.CARD.PN ---
Subjective Subjective Remarks No angina or CHF, feels well Objective Medications Current Medications Medications (Trade) Dose Ordered Sig/Marko Route Start Time Stop Time Status Last Admin (NS Flush) 2 ml BID IV FLUSH 06/13/17 21:00 06/14/17 09:14 (NS Flush) 2 ml UNSCH PRN IV FLUSH 06/13/17 16:45 (Morphine Inj) 2 mg Q30M PRN IV PUSH 06/13/17 16:45 (Prinivil) 5 mg DAILY PO 06/14/17 09:00 06/14/17 09:12 (Glucotrol) 5 mg BIDAC PO 06/14/17 07:00 (Ambien) 10 mg HS PO 06/13/17 21:00 06/13/17 23:22 (D50w (Vial) Inj) 50 ml UNSCH PRN IV PUSH 06/13/17 16:45 (Glucagon Inj) 1 mg UNSCH PRN OTHER 06/13/17 16:45 (NovoLOG SUPPLEMENTAL SCALE) 1 ACHS SLIDING SCALE SQ 06/13/17 17:00 06/14/17 09:13 (Tylenol) 325 mg Q4H PRN PO 06/13/17 20:15 (Aspirin Chew) 81 mg DAILY PO 06/14/17 09:00 06/14/17 09:12 (Brilinta) 90 mg BID PO 06/14/17 09:00 06/14/17 09:11 (Coreg) 6.25 mg BID PO 06/13/17 21:00 06/14/17 09:11 (Prinivil) 5 mg DAILY PO 06/14/17 09:00 (Lipitor) 80 mg HS PO 06/13/17 21:00 06/13/17 22:24 Vital Signs / I&O Vital Signs Date Time Temp Pulse Resp B/P (MAP) Pulse Ox O2 Delivery O2 Flow Rate FiO2 06/14/17 11:00 98.3 78 19 109/67 (81) 98 06/14/17 11:00 87 06/14/17 10:00 83 06/14/17 09:00 90 06/14/17 08:00 82 06/14/17 07:15 87 06/14/17 07:15 98.3 88 16 142/83 (102) 98 06/14/17 06:00 111 06/14/17 05:00 86 06/14/17 04:00 88 06/14/17 03:00 98.4 94 98/64 (75) 98 06/14/17 03:00 90 06/14/17 02:00 80 06/14/17 01:00 90 06/14/17 00:05 94 06/13/17 23:00 98.4 91 125/79 (94) 97 06/13/17 23:00 91 06/13/17 22:00 88 06/13/17 21:00 91 06/13/17 19:00 97.9 84 130/67 (88) 98 06/13/17 17:30 06/13/17 16:25 99 18 157/84 (108) 99 Nasal Cannula 2.00 06/13/17 15:20 88 06/13/17 15:20 98 Nasal Cannula 2.00 06/13/17 15:20 98 Nasal Cannula 2.00 06/13/17 15:15 97.9 88 20 161/99 (119) 99 I/O 06/13/17 06/13/17 06/13/17 06/14/17 06/14/17 06/14/17 07:00 15:00 23:00 07:00 15:00 23:00 Intake Total 730 ml Output Total 1700 ml Balance -970 ml Intake Oral 480 ml IV Total 250 ml Output Urine Total 1700 ml Physical Exam GENERAL: In NAD SKIN: Warm and dry. HEAD: Normocephalic. EYES: No scleral icterus. No injection or drainage. NECK: Supple, trachea midline. No JVD or lymphadenopathy. CARDIOVASCULAR: Regular rate and rhythm without murmurs, gallops, or rubs. RESPIRATORY: Breath sounds equal bilaterally. No accessory muscle use. GASTROINTESTINAL: Abdomen soft, non-tender, nondistended. MUSCULOSKELETAL: No cyanosis, or edema. Groin stable Laboratory Laboratory Tests Test 06/13/17 15:20 06/14/17 00:12 06/14/17 03:55 White Blood Count 11.2 TH/MM3 11.5 TH/MM3 12.3 TH/MM3 Red Blood Count 4.85 MIL/MM3 4.17 MIL/MM3 4.28 MIL/MM3 Hemoglobin 13.2 GM/DL 11.6 GM/DL 12.0 GM/DL Hematocrit 40.9 % 34.2 % 35.0 % Mean Corpuscular Volume 84.2 FL 81.9 FL 81.6 FL Mean Corpuscular Hemoglobin 27.2 PG 27.9 PG 28.1 PG Mean Corpuscular Hemoglobin Concent 32.3 % 34.0 % 34.4 % Red Cell Distribution Width 13.0 % 13.6 % 13.7 % Platelet Count 389 TH/MM3 356 TH/MM3 340 TH/MM3 Mean Platelet Volume 7.8 FL 7.3 FL 7.8 FL Neutrophils (%) (Auto) 69.7 % 76.9 % 74.9 % Lymphocytes (%) (Auto) 18.9 % 14.1 % 14.5 % Monocytes (%) (Auto) 6.7 % 7.6 % 8.7 % Eosinophils (%) (Auto) 4.0 % 0.7 % 1.5 % Basophils (%) (Auto) 0.7 % 0.7 % 0.4 % Neutrophils # (Auto) 7.9 TH/MM3 8.9 TH/MM3 9.2 TH/MM3 Lymphocytes # (Auto) 2.1 TH/MM3 1.6 TH/MM3 1.8 TH/MM3 Monocytes # (Auto) 0.7 TH/MM3 0.9 TH/MM3 1.1 TH/MM3 Eosinophils # (Auto) 0.4 TH/MM3 0.1 TH/MM3 0.2 TH/MM3 Basophils # (Auto) 0.1 TH/MM3 0.1 TH/MM3 0.1 TH/MM3 CBC Comment DIFF FINAL DIFF FINAL DIFF FINAL Differential Comment Prothrombin Time 10.1 SEC Prothromb Time International Ratio 1.0 RATIO Activated Partial Thromboplast Time 26.4 SEC 31.3 SEC Blood Urea Nitrogen 15 MG/DL 11 MG/DL Creatinine 1.00 MG/DL 0.94 MG/DL Random Glucose 224 MG/DL 198 MG/DL Calcium Level 8.6 MG/DL 8.5 MG/DL Magnesium Level 2.1 MG/DL Sodium Level 135 MEQ/L 136 MEQ/L Potassium Level 3.6 MEQ/L 4.2 MEQ/L Chloride Level 101 MEQ/L 104 MEQ/L Carbon Dioxide Level 26.1 MEQ/L 22.3 MEQ/L Anion Gap 8 MEQ/L 10 MEQ/L Estimat Glomerular Filtration Rate 55 ML/MIN 59 ML/MIN Total Creatine Kinase 72 U/L 1146 U/L 1047 U/L Troponin I 0.20 NG/ML 39.70 NG/ML 23.80 NG/ML Creatine Kinase MB 101.7 NG/ML 71.5 NG/ML Creatine Kinase MB % 8.9 % 6.8 % Hematology Comments Triglycerides Level 217 MG/DL Cholesterol Level 162 MG/DL LDL Cholesterol 76 MG/DL HDL Cholesterol 42.7 MG/DL Cholesterol/HDL Ratio 3.79 RATIO Imaging Last 24 hours Impressions Chest X-Ray 06/13/17 1523 Signed Impressions: Service Date/Time: Tuesday, June 13, 2017 15:29 - CONCLUSION: 1. No acute cardiopulmonary findings identified. David Carr MD Assessment and Plan Problem List: (1) NSTEMI (non-ST elevated myocardial infarction) ICD Codes: I21.4 - Non-ST elevation (NSTEMI) myocardial infarction Status: Acute (2) Stented coronary artery ICD Codes: Z95.5 - Presence of coronary angioplasty implant and graft (3) Cardiomyopathy ICD Codes: I42.9 - Cardiomyopathy, unspecified (4) DM2 (diabetes mellitus, type 2) ICD Codes: E11.9 - Type 2 diabetes mellitus without complications (5) HTN (hypertension) ICD Codes: I10 - Essential (primary) hypertension Assessment and Plan Good PCI result. No recurrent symptoms. Continue long-term tx w Brangelta, luciana ASA. Continue high dose statin, beta ga and ARJUN-I. Groin stable. DC home. Will schedule outpt f/u. Andreas Huerta MD Jun 14, 2017 11:41
[2017-06-14] MEDS ORDERED: CARV6.252 PO (11:56)
[2017-06-14] MEDS ORDERED: ASPI81 PO (11:56)
[2017-06-14] MEDS ORDERED: ATOR80TA45 PO (11:56)
[2017-06-14] MEDS ORDERED: LISI-519 PO (11:56)
[2017-06-14] MEDS ORDERED: BRIL90TA PO (11:56)
--- NOTE | 2017-06-14 11:57 | HHI.PR ---
Subjective Remarks Patient reports she is feeling great today. No chest pain or shortness of breath. We discussed discharge planning at length. Objective Vitals Vital Signs Date Time Temp Pulse Resp B/P (MAP) Pulse Ox O2 Delivery O2 Flow Rate FiO2 06/14/17 11:00 98.3 78 19 109/67 (81) 98 06/14/17 11:00 87 06/14/17 10:00 83 06/14/17 09:00 90 06/14/17 08:00 82 06/14/17 07:15 87 06/14/17 07:15 98.3 88 16 142/83 (102) 98 06/14/17 06:00 111 06/14/17 05:00 86 06/14/17 04:00 88 06/14/17 03:00 98.4 94 98/64 (75) 98 06/14/17 03:00 90 06/14/17 02:00 80 06/14/17 01:00 90 06/14/17 00:05 94 06/13/17 23:00 98.4 91 125/79 (94) 97 06/13/17 23:00 91 06/13/17 22:00 88 06/13/17 21:00 91 06/13/17 19:00 97.9 84 130/67 (88) 98 06/13/17 17:30 06/13/17 16:25 99 18 157/84 (108) 99 Nasal Cannula 2.00 06/13/17 15:20 88 06/13/17 15:20 98 Nasal Cannula 2.00 06/13/17 15:20 98 Nasal Cannula 2.00 06/13/17 15:15 97.9 88 20 161/99 (119) 99 I/O 06/13/17 06/13/17 06/13/17 06/14/17 06/14/17 06/14/17 07:00 15:00 23:00 07:00 15:00 23:00 Intake Total 730 ml Output Total 1700 ml Balance -970 ml Intake Oral 480 ml IV Total 250 ml Output Urine Total 1700 ml Result Diagram: 06/14/17 0355 06/14/17 0355 Imaging Last Impressions Chest X-Ray 06/13/17 1523 Signed Impressions: Service Date/Time: Tuesday, June 13, 2017 15:29 - CONCLUSION: 1. No acute cardiopulmonary findings identified. David Carr MD Objective Remarks GENERAL: This is a well-nourished, well-developed patient, in no apparent distress. CARDIOVASCULAR: Normal rate and regular rhythm without murmurs, gallops, or rubs. RESPIRATORY: Good respiratory efforts. Breath sounds equal and clear to auscultation bilaterally. GASTROINTESTINAL: Abdomen soft, non-tender, non-distended. Normal active bowel sounds MUSCULOSKELETAL: Extremities without cyanosis, or edema. NEURO: Alert & Oriented x4 to person, place, time, situation. Moves all ext x4 PSYCH: Appropriate mood and affect. A/P Problem List: (1) NSTEMI (non-ST elevated myocardial infarction) ICD Code: I21.4 - Non-ST elevation (NSTEMI) myocardial infarction Status: Acute Plan: Patient status post successful PCI with Dr. Huerta. Discussed with Dr. Huerta. Patient is discharged home on aspirin, Brilinta, beta ga and ARJUN inhibitor. She will follow up outpatient with cardiology. (2) DM2 (diabetes mellitus, type 2) ICD Code: E11.9 - Type 2 diabetes mellitus without complications Plan: Patient also with neuropathy She can resume home dose diabetes medication. Follow-up outpatient with PCP. (3) HTN (hypertension) ICD Code: I10 - Essential (primary) hypertension Plan: Antihypertensives as above. Discharge Planning Discharge home in good condition Follow up with: PCP and cardiology Activity: Regular as tolerated Meds: Per med rec Diet: Heart healthy Natalya Tom MD Jun 14, 2017 11:57
--- NOTE | 2017-06-14 11:57 | HHI.DCPOC ---
Discharge Care Plan Diagnosis: (1) NSTEMI (non-ST elevated myocardial infarction) (2) HTN (hypertension) (3) DM2 (diabetes mellitus, type 2) Goals to Promote Your Health * To prevent worsening of your condition and complications * To maintain your health at the optimal level Directions to Meet Your Goals Take your medications as prescribed Follow your dietary instruction Follow activity as directed Keep your appointments as scheduled Take your immunizations and boosters as scheduled If your symptoms worsen call your PCP, if no PCP go to Urgent Care Center or Emergency Room Smoking is Dangerous to Your Health. Avoid second hand smoke Call the 24-hour hour crisis hotline for domestic abuse at Natalya Tom MD Jun 14, 2017 11:57
--- NOTE | 2017-06-14 14:45 | EKG ---
Date Performed: 06/13/2017 Time Performed: 15:47:51 PTAGE: 67 years EKG: Sinus rhythm MODERATE ST DEPRESSION ABNORMAL ECG NO PREVIOUS TRACING DOCTOR: Dionisio Jean Interpretating Date/Time 06/14/2017 14:45:00
--- NOTE | 2017-06-14 14:46 | EKG ---
Date Performed: 06/14/2017 Time Performed: 04:04:24 PTAGE: 67 years EKG: Sinus rhythm Normal ECG Since PREVIOUS TRACING , no significant change noted PREVIOUS TRACIN06/13/2017 23.07 DOCTOR: Dionisio Jean Interpretating Date/Time 06/14/2017 14:45:38
--- NOTE | 2017-06-14 14:46 | EKG ---
Date Performed: 06/13/2017 Time Performed: 23:07:32 PTAGE: 67 years EKG: Sinus rhythm ST junctional depression is nonspecific Borderline ECG Since PREVIOUS TRACING , no significant change noted PREVIOUS TRACIN06/13/2017 15.47.51 DOCTOR: Dionisio Jean Interpretating Date/Time 06/14/2017 14:45:26
[2017-06-14] MEDS ORDERED: IOHEXOL 350 MG/ML 100 ML BTL (for Cath Lab) OTHER ONE (15:04)
--- NOTE | 2017-06-15 13:02 | MA ---
cc: FIDE ALMEIDA MD DATE: 06/13/2017. INDICATIONS FOR THE PROCEDURE: Non S-T elevation myocardial infarction. Class IV angina. Cardiomyopathy. PROCEDURE PERFORMED: 1. Retrograde heart catheterization with left ventriculography and selective angiography 2. Angioplasty and stenting of the first diagonal artery. 3. Moderate sedation. ACCESS SITE: Right femoral artery. EQUIPMENT USED: A 5-Italian pigtail catheter. JL-4 and AL modified coronary artery catheters. XB-LAD 3.5 guide. BMW and run-through wires. A 2.0 balloon for pre-dilatation. 2.25 x 12 Zac expanded to 9 atmospheres to the proximal portion of the first diagonal branch. MEDICATIONS: 1. Versed IV. 2. Fentanyl IV. 3. Heparin IV. 4. Nitroglycerin IV. 5. Brilinta 180 milligrams p.o. CONTRAST: 180 cc. COMPLICATIONS: None. ESTIMATED BLOOD LOSS: Less than 10 cc. METHOD OF HEMOSTASIS: Angio-Seal closure. RESULTS OF HEMODYNAMICS: Heart rate 80 beats per minute End-diastolic pressure 5 mmHg. Ventricle 120/5. Aorta 120/67-92. Left ventricular ejection fraction 40%. Wall motion - anterolateral hypokinesis. No mitral regurgitation seen. CORONARY ANGIOGRAPHY: The left main coronary artery is patent. The left anterior descending artery has 30% stenosis in the midportion and 50% focal stenosis in the mid to distal portion. The first diagonal artery has 99% proximal stenosis. The second diagonal artery is patent. The left circumflex artery has 40% distal stenosis. The obtuse marginal #1 has 60% stenosis in the proximal portion. The obtuse marginal #2 has 70% stenosis in the proximal portion. The obtuse marginal #3 is patent. The right coronary artery has 20% stenosis in the midportion. The posterior descending artery has 50% stenosis in the proximal portion. The left anterior descending is patent. The stenosis in the first diagonal artery is 80 mm long 99%. JOSE ANGEL flow I, post JOSE ANGEL flow III, post stenosis 0. Post intervention angiography revealed excellent patency of the stented segments and no evidence of dissection, thrombosis or embolization. DIAGNOSIS: 1. Non [id number]-[id number] myocardial function. 2. Coronary artery disease with severe 99% stenosis of the first diagonal artery. 3. Moderate left ventricular dysfunction consistent with ischemic cardiomyopathy. 4. Successful angioplasty and stenting of the first diagonal artery. DISPOSITION: monitoring and telemetry after the procedure. We will continue long-term antibiotic therapy with Brilinta and aspirin. Will also continue aggressive modification of her cardiac risk factors. I will follow her for cardiology during her hospitalization and will also see her back for follow up in our office after discharge. MD CHAIM Flores/EZEKIEL /7:56 PM /12:48 PM
== END 2017-06-14 15:05 | disposition home or self-care (01) | DRG 247 ==
LOC: PHED 15:06 → PHEDA 16:15 → MERGE 16:15 → HCPC 18:10 → HCIS 18:23 → HCPC 20:37
PROVIDERS: ADMIT Family Medicine; ATTEND Family Medicine
PROC: 027034Z Dilation of Coronary Artery, One Artery with Drug-eluting Intraluminal Device, Percutaneous Approach (ICD-10-PCS; principal; 2017-06-13)
PROC: 4A023N7 Measurement of Cardiac Sampling and Pressure, Left Heart, Percutaneous Approach (ICD-10-PCS; 2017-06-13)
PROC: B2111ZZ Fluoroscopy of Multiple Coronary Arteries using Low Osmolar Contrast (ICD-10-PCS; 2017-06-13)
PROC: B2151ZZ Fluoroscopy of Left Heart using Low Osmolar Contrast (ICD-10-PCS; 2017-06-13)
DX: I21.4 Non-ST elevation (NSTEMI) myocardial infarction (principal); E11.40 Type 2 diabetes mellitus with diabetic neuropathy, unspecified; I25.10 Atherosclerotic heart disease of native coronary artery without angina pectoris; I10 Essential (primary) hypertension; I25.5 Ischemic cardiomyopathy; Z79.84 Long term (current) use of oral hypoglycemic drugs
CPT/HCPCS: 71045; 80048; 80061; 82550; 82552; 82948; 83735; 84484; 85002; 85025; 85610; 85730; 92928; 93005; 93458; 99152; 99153; 99291; C1725; C1760; C1769; C1874; C1887; C1893; G0269; J1644; J1815; J2250; J3010; J7030; Q9967